=== PATIENT | male | born 2005 | race Caucasian/White ===

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

== ENCOUNTER 2024-07-15 08:56 | Emergency (ER) | payer BC, SELFPAY ==
[2024-07-15 08:59] VITALS: BP 128/76; PULSE 57; RESP 16; TEMP 36.7; O2SAT 100; BMI 26.2
--- NOTE | 2024-07-15 09:02 | EX.ED.GENINJ ---
HPI History of Present Illness Chief Complaint: Head Injury Informant: patient Onset/Context/Timing Onset: Today Mechanism/Context: Blunt Injury Quality of Pain: Dull Location: Frontal Worsened by: Nothing Relieved by: Nothing Associated Symptoms Associated Symptoms: Negative for Parasthesias, Weakness, Loss of function, Inability to ambulate, Loss of consciousness or Amnesia Narrative Narrative: Patient presents with a head injury that occurred today. Patient opened his refrigerator door and hit himself in the head. Patient states he had an episode of some blurry vision immediately after the injury. Patient denies any loss of consciousness. Patient states he had an episode of nausea and vomiting while he was going to work today. Patient denies any paresthesias or weakness. Patient denies any other injuries. Currently, patient denies any headaches. [facility] Medical History (Updated 07/15/24 @ 09:[address] Colin Reyes DO) Wears contact lenses Wears glasses Migraine headache Right ACL tear Paronychia of great toe of right foot COVID-19 Encounter for screening for COVID-19 Acute pharyngitis, unspecified Home Medications ?Medication ?Instructions ?Recorded ?Last Taken ?Type NK 12/29/23 Unknown History Allergy/AdvReac Type Severity Reaction Status Date / Time No Known Allergies Allergy Verified 07/15/24 08:59 Family History Grandmother Myocardial infarction Father Myocardial infarction Grandfather Aortic dissection Surgical History (Updated 07/15/24 @ 09:[address] Colin Reyes DO) History of repair of ACL Social History Smoking Status: Never smoker ROS ROS ED Constitutional Constitutional ED: Denies chills or fever(s) Eyes Eyes: Reports blurry vision; Denies change in vision ENT ENT ED: Denies rhinorrhea or sore throat Cardiovascular Cardiovascular: Denies chest pain or palpitations Respiratory/Chest Respiratory/Chest: Denies cough or dyspnea Gastrointestinal Gastrointestinal: Reports nausea and vomiting; Denies abdominal pain or diarrhea Genitourinary Genitourinary ED: Denies dysuria or hematuria Musculoskeletal Musculoskeletal: Denies back pain or neck pain Integumentary Denies abscess or rash Neurologic Neurologic: Denies headache(s) or weakness Allergic/Immunologic Allergic/Immunologic ED: Denies mouth swelling or urticaria EXAM Physical Exam Const Vital Signs: 07/15/24 08:59 07/15/24 09:10 Temperature 98.0 F Temperature Source Oral Pulse Rate 57 L Respiratory Rate 16 Respiratory Effort Normal Blood Pressure 128/76 H Blood Pressure Mean 93 Pulse Ox 100 Oxygen Delivery Method Room Air Positive well nourished and well developed Constitutional Narrative: BMI is 26.2 General Appearance ED: well developed and NAD HEENT HEENT Narrative: There is mild tenderness over the frontal scalp. There is no edema or ecchymosis. There is no bony crepitance or step-off noted. Neck full ROM Resp normal respiratory effort and clear to auscultation bilaterally Cardio regular rhythm Rate: regular rate GI non-tender and non-distended Palpation: soft Extremity normal to inspection and full ROM Neuro oriented x3, CN's II-XII intact bilaterally, moves all extremities, no focal motor deficits and no sensory deficits noted Sensorium / Orientation: alert Motor Exam: strength 5/5 throughout Psych mental status grossly normal and thought process normal MDM MDM MDM Narrative Medical decision making narrative: Differential diagnosis includes closed head injury, concussion, and intracranial bleeding. CT scan of the brain will be obtained to assess for intracranial bleeding. Radiography Diagnostic Testing: Clinical Impression(s) from Imaging Studies Brain CT 07/15/24 09:09 IMPRESSION: No acute intracranial abnormality. Reading Location: [facility] CT scan of the brain was obtained. There is no acute intracranial abnormality. This was interpreted by the radiologist and was also independently reviewed by myself. Discharge Plan Triage Chief Complaint: Head Injury ED Provider: Colin Reyes Dx/Rx/DC Orders Clinical Impression: Closed head injury, Nausea and vomiting Instructions: ED Head Injury (Adult) Prescriptions: No Action NK Stand Alone Forms: ED Work / School Excuse Primary Care Provider: Andres Mcguire Referrals: Andres Mcguire MD [Primary Care Provider] - 1-2 Weeks Print Language: Serbian Disposition Disposition: Home, Self Care
--- NOTE | 2024-07-15 09:09 | CT_ITS ---
PROCEDURE: BRAIN/HEAD WITHOUT CONTRAST 07/15/2024 REASON FOR EXAM: INJURY/PAIN TECHNIQUE: Head CT without intravenous contrast. Coronal and Sagittal reconstruction series were provided. One or more dose reduction techniques were used (e.g., Automated exposure control, adjustment of the mA and/or kV according to patient size, use of iterative reconstruction technique. COMPARISON: None FINDINGS: No evidence of acute intracranial hemorrhage, midline shift or mass effect. No definite CT evidence of acute territorial cortical infarction. No hydrocephalus. Cerebral volume is age-appropriate. No depressed calvarial fracture. Paranasal sinuses and mastoid air cells are relatively clear. Globes are intact. CT/Brain/Head without Contrast IMPRESSION: No acute intracranial abnormality. Reading Location: [facility]
== END 2024-07-15 09:47 | disposition home or self-care (01) ==
LOC: ED 09:27
PROVIDERS: Emergency Provider Emergency Medicine; PCP Family Medicine; Visit Provider Emergency Medicine
DX: S09.90XA Unspecified injury of head, initial encounter (principal); R11.2 Nausea with vomiting, unspecified; Z86.16 Personal history of COVID-19; W22.09XA Striking against other stationary object, initial encounter
CPT/HCPCS: 70450; 99282

== ENCOUNTER 2025-04-03 18:39 | Emergency (ER) | payer BC, SELFPAY ==
[2025-04-03 18:40] VITALS: BP 130/84; PULSE 97; RESP 18; TEMP 37.4; O2SAT 100; BMI 23.1
[2025-04-03 20:06] LABS: Mucous, Urine 0 SEEN /hpf (<or=2+); Red Blood Cells-Urine 0 SEEN /hpf (0-5)
[2025-04-03 20:15] LABS: Glucose, Dipstick Normal (Normal); Ketone-Dipstick Negative (Negative); Leukocyte Esterase-Dipstick Negative /ul (Negative); Nitrite-Dipstick Negative (Negative); Occult Blood-Urine Negative /ul (Negative); Protein-Dipstick Negative (Negative); Specific Gravity, Urine 1.010 (1.002-1.030); Urine Bilirubin Dipstick Negative (Negative)
--- NOTE | 2025-04-03 20:18 | EX.ED.DYSGE1 ---
HPI History of Present Illness Chief Complaint: Nausea/Vomiting Informant: patient Narrative Narrative: Patient is a 19-year-old male presents with flulike symptoms that started yesterday mildly. He notes yesterday he just felt fatigued. Today he woke up and has felt very poorly. He has had headache, congestion, runny nose, body aches with increased pain in his lower abdomen intermittently. He states this afternoon he fell asleep and that he woke up drenched in sweat and nauseous. He then had several large episodes of vomiting. He took Tylenol around 130 this afternoon. Does also report some pain with urination and pain in his bilateral testicles but he states this testicular pain is not out of proportion to the pain and the rest of his body. Notes that he was around his stepfather who is sick but he just had URI symptoms. No other complaints or concerns reported at this time. [facility] Medical History (Updated 04/03/25 @ 22:[address] Christie Jhaveri, DO) Wears contact lenses Wears glasses Migraine headache Right ACL tear Paronychia of great toe of right foot COVID-19 Encounter for screening for COVID-19 Acute pharyngitis, unspecified Home Medications ?Medication ?Instructions ?Recorded ?Last Taken ?Type ondansetron 4 mg disintegrating 4 mg PO Q8H PRN PRN Nausea #10 tabs 04/03/25 Unknown Rx tablet Allergy/AdvReac Type Severity Reaction Status Date / Time No Known Allergies Allergy Verified 04/03/25 18:40 Family History Grandmother Myocardial infarction Father Myocardial infarction Grandfather Aortic dissection Surgical History History of repair of ACL Social History Smoking Status: Never smoker ROS ROS ED Constitutional Constitutional ED: Reports chills and fever(s) ENT ENT ED: Reports rhinorrhea and other Details: congestion Cardiovascular Cardiovascular: Denies chest pain Respiratory/Chest Respiratory/Chest: Reports cough and sputum Gastrointestinal Gastrointestinal: Reports abdominal pain, nausea and vomiting; Denies constipation or diarrhea Genitourinary Genitourinary ED: Reports dysuria and other Details: Bilateral testicular pain Musculoskeletal Musculoskeletal: Reports arthralgias, back pain and myalgias Neurologic Neurologic: Reports headache(s) and weakness Hematologic/Lymphatic Hematologic/Lymphatic: Denies easy bleeding or easy bruising EXAM Physical Exam Const Vital Signs: 04/03/25 18:40 04/03/25 22:37 Temperature 99.3 F H 98 F Temperature Source Oral Pulse Rate 97 70 Respiratory Rate 18 20 H Blood Pressure 130/84 H 151/68 H Blood Pressure Mean 99 95 Pulse Ox 100 98 Oxygen Delivery Method Room Air Positive well nourished and well developed Constitutional Narrative: Patient looks nontoxic but does look like he does not feel well General Appearance ED: well developed and NAD HEENT Reports TM's clear and moist mucous membranes HEENT Narrative: Nasal congestion present. Normal oropharynx. Tympanic Membrane ED: Yes TM's clear Eyes PERRL Neck supple Neck Narrative: No nuchal rigidity Chest Wall inspection of chest normal and palpation of chest normal Resp normal respiratory effort and clear to auscultation bilaterally Auscultation: Negative for rales, rhonchi or wheezes Cardio regular rate, regular rhythm and no murmurs GI normal to inspection, nondistended, normoactive bowel sounds and non-tender Back/Spine no CVA tenderness Extremity normal to inspection Neuro oriented x3 Sensorium / Orientation: alert Motor Exam: Negative for general weakness Psych mental status grossly normal Skin no rashes or lesions noted and no wounds MDM MDM MDM Narrative Medical decision making narrative: Patient evaluated for vomiting 1 day of flulike symptoms. He appears nontoxic but does like he does not feel well. Vital signs are significant for low-grade temperature of 99.3. Looks like he feels feverish. Does report some lower abdominal pain and dysuria as well as on urinalysis edition flu swab. Is given Zofran for nausea control. Is also given ibuprofen for pain and fever control. Repeat evaluation is feeling much better. Tolerating p.o. Abdomen is soft. Urinalysis is most consistent with contamination but not highly consistent with urinary tract infection. Flu swab positive for influenza A. Patient is clear breath sounds and no hypoxia. Do not think requires a chest x-ray. He does not have tachycardia at proportion or chest pain low suspicion for viral myocarditis/pericarditis. Patient ambulatory the steady gait in emergency room. Will be discharged home. Discussed risk and benefits of Tamiflu and patient agreeable with deferring Tamiflu because she is he is low risk for severe complication given he is a young healthy 19-year-old male. Will be prescribed Zofran to help with symptom control. Discussed alternate ibuprofen and Tylenol taken [id number] cold and flu medication to help with symptom relief. Discussed pushing fluids to keep hydrated. Patient and family verbalized Nieves understands plan. Discharged home in stable condition. Lab Data Attestation: I reviewed the patient's lab results. Lab results narrative: Microbiology Final Results - last 24 hrs 04/03/25 19:15 SARS-CoV-2, Influenza & RSV (PCR) - Final Mucosa - Nose Influenzae A Labs: Laboratory Results - last 24 hr 04/03/25 19:15 Urine Color Yellow Urine Clarity Clear Urine pH 7.0 Ur Specific [place] 1.010 Urine Protein Negative Urine Glucose (UA) Normal Urine Ketones Negative Urine Occult Blood Negative Urine Nitrite Negative Urine Bilirubin Negative Urine Urobilinogen Normal Ur Leukocyte Esterase Negative Urine RBC 0 SEEN Urine WBC 0-5 SEEN Ur Squamous Epith Cells 0-5 SEEN Amorphous Sediment 1+ Urine Bacteria 2+ Urine Mucus 0 SEEN Discharge Plan Triage Chief Complaint: Nausea/Vomiting ED Provider: Christie Jhaveri Dx/Rx/DC Orders Clinical Impression: Influenza A, Nausea & vomiting Instructions: ED Influenza (Adult) Prescriptions: New ondansetron 4 mg tablet,disintegrating 4 mg PO Q8H PRN PRN (Reason: Nausea) Qty: 10 0RF Primary Care Provider: Andres Mcguire Referrals: Andres Mcguire MD [Primary Care Provider, [facility]] Activity Restrictions/Additional Instructions: You tested positive for influenza A. Is likely causing her symptoms. Alternate ibuprofen and Tylenol and [id number] cold and flu medication for symptom control. Try to push fluids. You been prescribed Zofran to help with nausea. If you have worsening symptoms or difficulty breathing please return to the emergency room. Print Language: Tunisian Disposition Disposition: Home, Self Care Discharge Date/Time: 04/03/25 22:39
[2025-04-03 20:29] LABS: Color, Urine Yellow (Yellow)
[2025-04-03 21:38] LABS: Squamous Epithelial Cells - UA 0-5 SEEN /hpf (0-5)
[2025-04-03 22:37] VITALS: BP 151/68; PULSE 70; RESP 20; TEMP 36.6; O2SAT 98
== END 2025-04-03 22:39 | disposition home or self-care (01) ==
PROVIDERS: Emergency Provider Emergency Medicine; PCP Family Medicine; Visit Provider Emergency Medicine
DX: J10.1 Influenza due to other identified influenza virus with other respiratory manifestations (principal); R11.2 Nausea with vomiting, unspecified; R30.0 Dysuria; Z86.16 Personal history of COVID-19; N50.811 Right testicular pain; N50.812 Left testicular pain
CPT/HCPCS: 81001; 87631; 99283